=== PATIENT | female | born 1945 | race Caucasian/White ===

== ENCOUNTER 2019-01-22 10:58 | Inpatient (IN) | payer MEDICARE ==
[~2019-01-22] VITALS: Ht 162.6 cm; Wt 106.8 kg
[~2019-01-22 10:58] MED LIST: METO100T7 PO; MONT10TA24 PO; OMEP20CA11 PO; SIMV-42 PO; TRAM200T4 PO
--- NOTE | 2019-01-22 11:10 | NUR ---
STROKE NURSE AT BEDSIDE.
[2019-01-22 11:22] LABS: BASOPHILS # (AUTO) 0.1 X10'3 (0-0.2); BASOPHILS % (AUTO) 0.6 % (0-1); EOSINOPHILS # (AUTO) 0.2 X10'3 (0-0.9); EOSINOPHILS % (AUTO) 1.7 % (0-6); HEMATOCRIT 41.4 % (35.0-45.0); HEMOGLOBIN 14.1 g/dl (12.0-16.0); LYMPHOCYTES # (AUTO) 2.4 X10'3 (1.1-4.8); LYMPHOCYTES % (AUTO) 25.2 % (21-51); MEAN CORPUSCULAR HEMOGLOBIN 29.9 PG (27.0-31.0); MEAN CORPUSCULAR VOLUME 87.8 FL (78-98); MEAN PLATELET VOLUME 7.6 FL (7.4-10.4); MONOCYTES # (AUTO) 0.7 X10'3 (0-0.9); NEUTROPHILS # (AUTO) 6.3 X10'3 (1.8-7.7); NEUTROPHILS % (AUTO) 65.5 % (42-75); PLATELET COUNT 260 X10'3 (140-440); RED BLOOD COUNT 4.71 X10'6 (4.20-5.60); RED CELL DISTRIBUTION WIDTH 14.2 % (11.5-14.5); WHITE BLOOD COUNT 9.6 X10'3 (4.5-11.0)
[2019-01-22 11:36] LABS: PARTIAL THROMBOPLASTIN TIME 26 SECONDS (22-32)
[2019-01-22 11:37] LABS: ALANINE AMINOTRANSFERASE 21 U/L (12-78); ALBUMIN 3.6 G/DL (3.4-5.0); ALBUMIN/GLOBULIN RATIO 0.9 (1.1-1.5); ALKALINE PHOSPHATASE 94 IU/L (46-116); ANION GAP 11 (8-16); ASPARTATE AMINO TRANSFERASE 23 U/L (10-37); BILIRUBIN,TOTAL 0.3 MG/DL (0.1-1.0); BLOOD UREA NITROGEN 18 MG/DL (7-18); BUN/CREATININE RATIO 23.1 (6.6-38.0); CHLORIDE 104 MMOL/L (99-107); CREATININE 0.78 MG/DL (0.40-0.90); GLUCOSE 122 MG/DL (70-104); POTASSIUM 3.9 MMOL/L (3.5-5.1); SODIUM 139 MMOL/L (135-145); TOTAL CARBON DIOXIDE 24.3 MMOL/L (24-32); TOTAL PROTEIN 7.5 G/DL (6.4-8.2); eGFR 73 ML/MIN
[2019-01-22 11:42] LABS: TROPONIN I < 0.04 NG/ML (0.0-0.05)
[2019-01-22] MEDS ORDERED: aspirin 325mg tablet PO ONE (11:50)
[2019-01-22] MEDS ORDERED: METO-467 PO (11:52)
--- NOTE | 2019-01-22 11:58 | NUR ---
Evaluted for level 1 stroke at 1110 this morning. Patient describes weakness and dragging of left leg and weakness in the left arm at approximately 1040 this am. Upon arrival in ED symptoms have largely resolved. No weakness notable on exam, although patient describes feeling "mildly weak still." CT done, labs reviewed, glucose normal. Teleneurolgy and ER provider assessment, ruled out for TPA. Will be admitted for TIA/stroke work-up.
[2019-01-22] MEDS ORDERED: morphine 2 MG/ML inj. syringe IV PRN ×2 (12:00)
[2019-01-22] MEDS ORDERED: magnesium Cl slow-release 64mg tablet PO PRN (12:00)
[2019-01-22] MEDS ORDERED: bisacodyl 10mg suppository rectal RC PRN (12:00)
[2019-01-22] MEDS ORDERED: diphenhydrAMINE 25mg capsule PO PRN (12:00)
[2019-01-22] MEDS ORDERED: magnesium 2GM in 50ml NS 50 ML IV PRN (12:00)
[2019-01-22] MEDS ORDERED: HYDROcodone/acetaminophen 10/325mg tab PO PRN (12:00)
[2019-01-22] MEDS ORDERED: HYDROcodone/acetaminophen 5mg/325mg tablet PO PRN (12:00)
[2019-01-22] MEDS ORDERED: acetaminophen 325mg tablet PO PRN ×2 (12:00)
[2019-01-22] MEDS: K and/or MAG REPLACEMENT MC SCH (12:00)
[2019-01-22] MEDS ORDERED: potassium Cl 20 mEq SR tablet PO PRN ×2 (12:00)
[2019-01-22] MEDS ORDERED: magnesium 4gm in 100ml NS 100 ML IV PRN (12:00)
[2019-01-22] MEDS ORDERED: magnesium hydroxide 30ml (MOM) UD suspension PO PRN (12:00)
[2019-01-22] MEDS ORDERED: potassium CL 10mEq/100ml bag 100 ML IV PRN ×2 (12:00)
[2019-01-22] MEDS ORDERED: ondansetron/PF 4mg/2ml inj IV PRN (12:00)
[2019-01-22] MEDS ORDERED: mag hydrox/Alum hydrox/simeth 30ml oral suspension PO PRN (12:00)
[2019-01-22] MEDS: normal saline 1000ml 1,000 ML IV SCH ×3 (12:37→23:55)
[2019-01-22 12:43] LABS: CHOL/HDL RATIO 4.9 (0.00-4.99); CHOLESTEROL 197 MG/DL (0-200); HDL CHOLESTEROL 40 MG/DL (35-60); LDL CHOLESTEROL 124 MG/DL (50-100); TRIGLYCERIDES 324 MG/DL (20-135)
[2019-01-22 14:10] VITALS: BP 165/89
--- NOTE | 2019-01-22 14:43 | NUR ---
PT PASSED BED SIDE SWALLOW STUDY AND IS ABLE TO HAVE THIN LIQUIDS AND A HEART HEALTHY DIET.
[2019-01-22 14:48] LABS: CLARITY,URINE CLEAR (Clear); COLOR,URINE STRAW (Yellow); GLUCOSE, URINE NEGATIVE (Neg); KETONES,URINE NEGATIVE (Neg); LEUKOCYTE ESTERASE ,URINE NEGATIVE (Neg); NITRITES, URINE NEGATIVE (Neg); OCCULT BLOOD,URINE NEGATIVE (Neg); PROTEIN,URINE NEGATIVE (Neg); UROBILINOGEN,URINE 0.2 E.U/dL (0.2-1.0)
[2019-01-22 14:50] LABS: UA COLLECTION TYPE CLN CATCH MIDSTREAM
[2019-01-22] MEDS: atorvastatin 20mg tablet PO SCH (17:15)
--- NOTE | 2019-01-22 17:41 | NUR ---
PAGER ID: [phone] MESSAGE: DR. BUSTILLO, [id number], HAVE LIPITOR 80 DUE NOW. SHE SAYS SHE TOOK ZOCOR 20MG THIS MORNING. DO YOU WANT ME TO GIVE THE LIPITOR? VICENTE [phone]
[2019-01-22] MEDS ORDERED: atorvastatin 20mg tablet PO ONE (17:45)
[2019-01-22 18:00] VITALS: BP 128/64
--- NOTE | 2019-01-22 18:58 | NUR ---
Problems reprioritized. Patient report given, questions answered & plan of care reviewed with KALYANI ANDERSON.
--- NOTE | 2019-01-22 18:59 | NUR ---
Patient in room ORTHO 4022. I have received report from KALYANI Berger and had the opportunity to ask questions and assume patient care.
[2019-01-22] MEDS: heparin, porcine 5000 units/ml vial SQ SCH (20:10)
[2019-01-22] MEDS: metoprolol tartrate 50mg tablet PO SCH (20:13)
[2019-01-22 22:00] VITALS: BP 122/49
[2019-01-22 22:56] VITALS: BP_SYST 122; BP_SYST 140; BP_SYST 162; BP_DIAS 49; BP_DIAS 85
[2019-01-23 02:24] VITALS: BP 127/67
[2019-01-23 06:00] VITALS: BP 150/88
--- NOTE | 2019-01-23 06:04 | NUR ---
Problems reprioritized. Patient report given, questions answered & plan of care reviewed with KALYANI Yang.
[2019-01-23 06:17] LABS: BASOPHILS % (AUTO) 0.4 % (0-1); EOSINOPHILS # (AUTO) 0.1 X10'3 (0-0.9); EOSINOPHILS % (AUTO) 1.5 % (0-6); HEMOGLOBIN 13.4 g/dl (12.0-16.0); LYMPHOCYTES # (AUTO) 2.8 X10'3 (1.1-4.8); MEAN CORPUSCULAR HEMOGLOBIN 29.6 PG (27.0-31.0); MEAN CORPUSCULAR HGB CONC 33.5 g/dL (33.0-36.5); MEAN CORPUSCULAR VOLUME 88.3 FL (78-98); MEAN PLATELET VOLUME 7.8 FL (7.4-10.4); MONOCYTES # (AUTO) 0.6 X10'3 (0-0.9); NEUTROPHILS # (AUTO) 5.4 X10'3 (1.8-7.7); NEUTROPHILS % (AUTO) 60.1 % (42-75); PLATELET COUNT 237 X10'3 (140-440); RED BLOOD COUNT 4.53 X10'6 (4.20-5.60)
--- NOTE | 2019-01-23 06:20 | NUR ---
RECEIVED REPORT FROM KALYANI HONEYCUTT
[2019-01-23 06:34] LABS: ALANINE AMINOTRANSFERASE 17 U/L (12-78); ALBUMIN 3.2 G/DL (3.4-5.0); ALBUMIN/GLOBULIN RATIO 0.9 (1.1-1.5); ALKALINE PHOSPHATASE 80 IU/L (46-116); ANION GAP 9 (8-16); ASPARTATE AMINO TRANSFERASE 25 U/L (10-37); BILIRUBIN,TOTAL 0.4 MG/DL (0.1-1.0); BLOOD UREA NITROGEN 14 MG/DL (7-18); BUN/CREATININE RATIO 17.5 (6.6-38.0); CALCIUM 8.3 MG/DL (8.5-10.1); CHLORIDE 107 MMOL/L (99-107); CHOL/HDL RATIO 5.1 (0.00-4.99); CHOLESTEROL 183 MG/DL (0-200); GLUCOSE 135 MG/DL (70-104); HDL CHOLESTEROL 36 MG/DL (35-60); LDL CHOLESTEROL 117 MG/DL (50-100); MAGNESIUM 1.7 MG/DL (1.5-2.4); PHOSPHORUS 3.7 MG/DL (2.3-4.5); POTASSIUM 3.9 MMOL/L (3.5-5.1); SODIUM 142 MMOL/L (135-145); TOTAL CARBON DIOXIDE 25.7 MMOL/L (24-32); TOTAL PROTEIN 6.7 G/DL (6.4-8.2); TRIGLYCERIDES 300 MG/DL (20-135); eGFR 71 ML/MIN
[2019-01-23] MEDS: K and/or MAG REPLACEMENT MC SCH (07:17)
[2019-01-23] MEDS: metoprolol tartrate 50mg tablet PO SCH (07:41)
[2019-01-23] MEDS: heparin, porcine 5000 units/ml vial SQ SCH (07:43)
[2019-01-23] MEDS ORDERED: pantoprazole 40mg Tablet.DR PO SCH ×2 (08:00)
[2019-01-23] MEDS ORDERED: aspirin 81mg tablet.DR PO SCH (08:00)
[2019-01-23] MEDS ORDERED: omega-3 acid ethyl esters 1GM capsule PO SCH (08:00)
--- NOTE | 2019-01-23 08:58 | NUR ---
Pt reports using a CPAP for delivery of room air, only when sleeping. Addendum: 01/23/19 at 0903 by Shivani COX Amended: Links added.
--- NOTE | 2019-01-23 08:59 | NUR ---
Pt reports LBM was yesterday. BM was normal for her. Addendum: 01/23/19 at 0903 by Shivani COX Amended: Links added.
[2019-01-23] MEDS: atorvastatin 20mg tablet PO SCH (09:26)
[2019-01-23 11:00] VITALS: BP_SYST 140; BP_SYST 144; BP_DIAS 71; BP_DIAS 75; BP_DIAS 82
--- NOTE | 2019-01-23 11:55 | NUR ---
Student documentation: I have reviewed all interventions, assessments performed and documented by Shivani Snowa Joaquina. Student Medication Administration: For this medication-pass time frame, all medication were reviewed, dispensed, administered and documented per hospital policy by Shivani Robertssta Joaquina.
--- NOTE | 2019-01-23 11:58 | NUR ---
Patient in room ORTHO 4022. I have received report from Celia and had the opportunity to ask questions and assume patient care.
--- NOTE | 2019-01-23 11:59 | NUR ---
Problems reprioritized. Patient report given, questions answered & plan of care reviewed with
[2019-01-23 14:00] VITALS: BP 153/75
[2019-01-23] MEDS ORDERED: ASPI-1071 PO (14:53)
[2019-01-23] MEDS ORDERED: ATOR20TA66 PO (14:53)
[2019-01-23] MEDS ORDERED: OMEG1CAP PO (14:53)
--- NOTE | 2019-01-23 15:28 | NUR ---
pt d/c with instructions, understanding of instructions and w/all belongings to private vehicle to go home and f/u w/pcp
== END 2019-01-23 15:20 | disposition home or self-care (01) | DRG 69 ==
LOC: ER 10:59 → ED HOLD 12:00 → ORTHO 4S 14:15
PROVIDERS: ADMIT Family Medicine; ATTEND Family Medicine
DX: G45.9 Transient cerebral ischemic attack, unspecified (principal); Z68.41 Body mass index [BMI] 40.0-44.9, adult; E78.00 Pure hypercholesterolemia, unspecified; E66.01 Morbid (severe) obesity due to excess calories; E78.1 Pure hyperglyceridemia; E78.5 Hyperlipidemia, unspecified; Z96.642 Presence of left artificial hip joint; G47.33 Obstructive sleep apnea (adult) (pediatric); I10 Essential (primary) hypertension; I25.10 Atherosclerotic heart disease of native coronary artery without angina pectoris; Z79.899 Other long term (current) drug therapy; Z82.3 Family history of stroke; Z82.49 Family history of ischemic heart disease and other diseases of the circulatory system; Z98.42 Cataract extraction status, left eye; Z98.41 Cataract extraction status, right eye; Z88.5 Allergy status to narcotic agent
CPT/HCPCS: 36415; 70450; 70544; 70551; 71045; 80053; 80061; 81003; 82948; 83036; 83735; 84100; 84484; 85025; 85610; 85651; 85730; 87081; 92508; 92616; 93005; 93306; 93880; 97161; 97530; 99291; G0378; J1644; J7030

== ENCOUNTER 2019-10-18 07:52 | Inpatient (IN) | payer MEDICARE ==
[~2019-10-18] VITALS: Ht 162.6 cm; Wt 104.5 kg
[~2019-10-18 07:52] MED LIST changes: +ASPI-1071 PO; +ATOR20TA66 PO; +METO-467 PO; -METO100T7 PO; -MONT10TA24 PO; +OMEG1CAP PO; -OMEP20CA11 PO; +OMEP20CA15 PO; -SIMV-42 PO; -TRAM200T4 PO
[2019-10-18 08:09] LABS: BASOPHILS # (AUTO) 0.1 X10'3 (0-0.2); BASOPHILS % (AUTO) 0.7 % (0-1); EOSINOPHILS # (AUTO) 0.2 X10'3 (0-0.9); EOSINOPHILS % (AUTO) 2.2 % (0-6); HEMATOCRIT 42.5 % (35.0-45.0); HEMOGLOBIN 14.7 g/dl (12.0-16.0); MEAN CORPUSCULAR HEMOGLOBIN 29.8 PG (27.0-31.0); MEAN CORPUSCULAR HGB CONC 34.5 g/dL (33.0-36.5); MEAN CORPUSCULAR VOLUME 86.5 FL (78-98); MEAN PLATELET VOLUME 7.8 FL (7.4-10.4); MONOCYTES # (AUTO) 0.9 X10'3 (0-0.9); NEUTROPHILS # (AUTO) 6.8 X10'3 (1.8-7.7); NEUTROPHILS % (AUTO) 62.1 % (42-75); PLATELET COUNT 259 X10'3 (140-440); RED BLOOD COUNT 4.92 X10'6 (4.20-5.60); RED CELL DISTRIBUTION WIDTH 14.8 % (11.5-14.5)
[2019-10-18 08:24] LABS: PARTIAL THROMBOPLASTIN TIME 25 SECONDS (22-32)
[2019-10-18 08:42] LABS: POTASSIUM 4.2 MMOL/L (3.5-5.1)
[2019-10-18 08:43] LABS: ALANINE AMINOTRANSFERASE 27 U/L (12-78); ALBUMIN 3.3 G/DL (3.4-5.0); ALBUMIN/GLOBULIN RATIO 0.8 (1.1-1.5); ANION GAP 8 (8-16); ASPARTATE AMINO TRANSFERASE 26 U/L (10-37); BILIRUBIN,TOTAL 0.2 MG/DL (0.1-1.0); BLOOD UREA NITROGEN 14 MG/DL (7-18); BUN/CREATININE RATIO 16.7 (6.6-38.0); CALCIUM 8.4 MG/DL (8.5-10.1); CHLORIDE 108 MMOL/L (99-107); CREATININE 0.84 MG/DL (0.40-0.90); GLUCOSE 146 MG/DL (70-104); SODIUM 141 MMOL/L (135-145); TOTAL PROTEIN 7.2 G/DL (6.4-8.2); eGFR 67 ML/MIN
[2019-10-18 08:45] LABS: ALKALINE PHOSPHATASE 85 IU/L (46-116)
[2019-10-18 09:02] LABS: MAGNESIUM 1.8 MG/DL (1.5-2.4)
[2019-10-18] MEDS ORDERED: aspirin 325mg tablet PO ONE (09:10)
[2019-10-18] MEDS ORDERED: ASPI-1265 PO (09:50)
[2019-10-18] MEDS ORDERED: FLUO20DR4 EACH EAR (09:51)
[2019-10-18] MEDS ORDERED: ATOR40TA72 PO (09:52)
[2019-10-18] MEDS ORDERED: acetaminophen 325mg tablet PO PRN (10:45)
[2019-10-18] MEDS ORDERED: magnesium hydroxide 30ml (MOM) UD suspension PO PRN (10:45)
[2019-10-18] MEDS ORDERED: ondansetron/PF 4mg/2ml inj IV PRN (10:45)
[2019-10-18] MEDS ORDERED: mag hydrox/Alum hydrox/simeth 30ml oral suspension PO PRN (10:45)
[2019-10-18] MEDS: normal saline 1000ml 1,000 ML IV SCH ×3 (11:07→23:16)
[2019-10-18 11:31] LABS: CHOL/HDL RATIO 5.8 (0.00-4.99); CHOLESTEROL 187 MG/DL (0-200); HDL CHOLESTEROL 32 MG/DL (35-60); LDL CHOLESTEROL 106 MG/DL (50-100); TRIGLYCERIDES 442 MG/DL (20-135)
--- NOTE | 2019-10-18 11:45 | NUR ---
assisted pulmonary function technologist with bubble study.
--- NOTE | 2019-10-18 11:49 | NUR ---
speech therp at bedside for swallow study ,pt going to [facility].
--- NOTE | 2019-10-18 11:51 | NUR ---
[facility] IS HERE TO TRANSFER PT. TO [facility] FOR MRI, REQUESTED BY DR. HODGES.
--- NOTE | 2019-10-18 11:53 | NUR ---
TJ NURSE IS GOING WITH THE PT.
--- NOTE | 2019-10-18 12:01 | NUR ---
TJ NURSE WILL GO WITH PT. TO ROOM ASSIGNMENT WHEN PT. RETURNS. PT. BELONGINGS ARE GOING TO BE DELIVERED TO THE ROOM ASSIGNED
--- NOTE | 2019-10-18 12:07 | NUR ---
Patient in room ED 10. I have received report from Davin AUGUSTE and had the opportunity to ask questions and assume patient care.
[2019-10-18 14:04] VITALS: BP 169/75
[2019-10-18 15:57] LABS: CLARITY,URINE CLEAR (Clear); COLOR,URINE STRAW (Yellow); GLUCOSE, URINE NEGATIVE (Neg); KETONES,URINE NEGATIVE (Neg); LEUKOCYTE ESTERASE ,URINE NEGATIVE (Neg); NITRITES, URINE NEGATIVE (Neg); OCCULT BLOOD,URINE NEGATIVE (Neg); PH,URINE 6.5 (4.8-8.0); PROTEIN,URINE NEGATIVE (Neg); UROBILINOGEN,URINE 0.2 E.U/dL (0.2-1.0)
[2019-10-18 16:02] LABS: UA COLLECTION TYPE CLN CATCH MIDSTREAM
--- NOTE | 2019-10-18 16:02 | NUR ---
Patient report given to Chelsey AUGUSTE
[2019-10-18 18:00] VITALS: BP 159/78
--- NOTE | 2019-10-18 18:43 | NUR ---
Patient in room ORTHO 4012. I have received report from Chelsey AUGUSTE and had the opportunity to ask questions and assume patient care.
[2019-10-18] MEDS ORDERED: metoprolol tartrate 50mg tablet PO SCH (20:00)
[2019-10-18] MEDS: heparin, porcine 5000 units/ml vial SQ SCH (20:02)
[2019-10-18 22:00] VITALS: BP 145/78
[2019-10-19 02:21] VITALS: BP 130/67
[2019-10-19 05:59] LABS: ANION GAP 9 (8-16); BLOOD UREA NITROGEN 13 MG/DL (7-18); BUN/CREATININE RATIO 17.1 (6.6-38.0); CALCIUM 8.3 MG/DL (8.5-10.1); CHLORIDE 108 MMOL/L (99-107); CREATININE 0.76 MG/DL (0.40-0.90); GLUCOSE 123 MG/DL (70-104); POTASSIUM 3.9 MMOL/L (3.5-5.1); SODIUM 141 MMOL/L (135-145); TOTAL CARBON DIOXIDE 24.5 MMOL/L (24-32); eGFR 75 ML/MIN
[2019-10-19 06:18] LABS: BASOPHILS % (AUTO) 0.4 % (0-1); EOSINOPHILS # (AUTO) 0.2 X10'3 (0-0.9); EOSINOPHILS % (AUTO) 2.1 % (0-6); HEMATOCRIT 38.2 % (35.0-45.0); HEMOGLOBIN 12.8 g/dl (12.0-16.0); LYMPHOCYTES # (AUTO) 3.6 X10'3 (1.1-4.8); LYMPHOCYTES % (AUTO) 36.2 % (21-51); MEAN CORPUSCULAR HGB CONC 33.4 g/dL (33.0-36.5); MEAN CORPUSCULAR VOLUME 86.8 FL (78-98); MEAN PLATELET VOLUME 8.2 FL (7.4-10.4); MONOCYTES # (AUTO) 0.7 X10'3 (0-0.9); MONOCYTES % (AUTO) 7.3 % (2-12); NEUTROPHILS # (AUTO) 5.4 X10'3 (1.8-7.7); PLATELET COUNT 213 X10'3 (140-440); RED BLOOD COUNT 4.41 X10'6 (4.20-5.60); RED CELL DISTRIBUTION WIDTH 14.8 % (11.5-14.5); WHITE BLOOD COUNT 9.9 X10'3 (4.5-11.0)
--- NOTE | 2019-10-19 06:22 | NUR ---
Problems reprioritized. Patient report given, questions answered & plan of care reviewed with Chelsey AUGUSTE.
[2019-10-19 07:25] VITALS: BP 141/79
[2019-10-19] MEDS ORDERED: pantoprazole 40mg Tablet.DR PO SCH (07:30)
[2019-10-19] MEDS ORDERED: atorvastatin 20mg tablet PO SCH (08:00)
[2019-10-19] MEDS ORDERED: aspirin 81mg tablet.DR PO SCH (08:00)
[2019-10-19] MEDS: heparin, porcine 5000 units/ml vial SQ SCH (10:12)
[2019-10-19 12:00] VITALS: BP 156/78
[2019-10-19] MEDS ORDERED: CLOP75TA15 PO (12:25)
[2019-10-19] MEDS ORDERED: ASPI81TA52 PO (12:25)
--- NOTE | 2019-10-21 16:07 | NUR ---
Case management DC follow up: LM/VM re post DC status, questions, concerns
[2019-10-23] MEDS ORDERED: FLUOCINOLONE ACETONIDE OIL EACH EAR SCH (08:00)
== END 2019-10-19 12:41 | disposition home or self-care (01) | DRG 66 ==
LOC: ER 07:53 → ED HOLD 10:41 → EDBEDREQ 11:35 → ORTHO 4S 13:00
PROVIDERS: ADMIT Family Medicine; ATTEND Family Medicine
PROC: 5A09357 Assistance with Respiratory Ventilation, Less than 24 Consecutive Hours, Continuous Positive Airway Pressure (ICD-10-PCS; principal; 2019-10-18)
DX: I63.9 Cerebral infarction, unspecified (principal); E78.00 Pure hypercholesterolemia, unspecified; E78.5 Hyperlipidemia, unspecified; G47.30 Sleep apnea, unspecified; I10 Essential (primary) hypertension; H53.8 Other visual disturbances; I25.10 Atherosclerotic heart disease of native coronary artery without angina pectoris; Z86.73 Personal history of transient ischemic attack (TIA), and cerebral infarction without residual deficits; Z79.899 Other long term (current) drug therapy; Z79.82 Long term (current) use of aspirin
CPT/HCPCS: 36415; 70450; 70551; 71045; 80048; 80053; 80061; 81003; 82948; 83735; 83880; 84484; 85025; 85610; 85730; 87081; 92508; 92616; 93005; 93306; 93880; 97110; 97161; 97530; 99285; G0378; J1644; J7030

== ENCOUNTER 2020-03-27 07:03 | Outpatient (CLI) | payer MEDICARE ==
[~2020-03-27 07:03] MED LIST changes: -ASPI-1071 PO; -ATOR20TA66 PO; +ATOR40TA72 PO; +CLOP75TA15 PO; +FLUO20DR4 EACH EAR; -OMEG1CAP PO
== END 2020-03-27 23:59 | disposition home or self-care (01) ==
LOC: RAD 07:03
PROVIDERS: ATTEND Family Medicine
DX: R10.9 Unspecified abdominal pain (principal); R14.0 Abdominal distension (gaseous)
CPT/HCPCS: 76700

== ENCOUNTER 2021-05-15 13:53 | Emergency (ER) | payer MEDICARE ==
[~2021-05-15] VITALS: Ht 162.6 cm; Wt 104.5 kg
[~2021-05-15 13:53] MED LIST changes: +ASPI-1265 PO; +MULT-1085 PO; +TEMA30CA PO; +UBID30CA11 PO
[2021-05-15 14:34] LABS: BASOPHILS % (AUTO) 0.4 % (0-1); EOSINOPHILS # (AUTO) 0.2 X10'3 (0-0.9); EOSINOPHILS % (AUTO) 1.7 % (0-6); HEMATOCRIT 41.1 % (35.0-45.0); HEMOGLOBIN 13.8 g/dl (12.0-16.0); LYMPHOCYTES # (AUTO) 2.3 X10'3 (1.1-4.8); LYMPHOCYTES % (AUTO) 23.9 % (21-51); MEAN CORPUSCULAR HEMOGLOBIN 28.9 PG (27.0-31.0); MEAN CORPUSCULAR HGB CONC 33.4 g/dL (33.0-36.5); MEAN CORPUSCULAR VOLUME 86.4 FL (78-98); MEAN PLATELET VOLUME 7.5 FL (7.4-10.4); MONOCYTES # (AUTO) 0.6 X10'3 (0-0.9); MONOCYTES % (AUTO) 6.7 % (2-12); NEUTROPHILS # (AUTO) 6.4 X10'3 (1.8-7.7); NEUTROPHILS % (AUTO) 67.3 % (42-75); PLATELET COUNT 247 X10'3 (140-440); RED BLOOD COUNT 4.76 X10'6 (4.20-5.60); RED CELL DISTRIBUTION WIDTH 14.2 % (11.5-14.5); WHITE BLOOD COUNT 9.4 X10'3 (4.5-11.0)
[2021-05-15 14:48] LABS: ALANINE AMINOTRANSFERASE 27 U/L (12-78); ALBUMIN 3.6 G/DL (3.4-5.0); ALBUMIN/GLOBULIN RATIO 0.9 (1.1-1.5); ALKALINE PHOSPHATASE 79 IU/L (46-116); ANION GAP 9 (8-16); ASPARTATE AMINO TRANSFERASE 28 U/L (10-37); BILIRUBIN,TOTAL 0.4 MG/DL (0.1-1.0); BLOOD UREA NITROGEN 17 MG/DL (7-18); BUN/CREATININE RATIO 19.8 (6.6-38.0); CALCIUM 8.5 MG/DL (8.5-10.1); CHLORIDE 105 MMOL/L (99-107); CREATININE 0.86 MG/DL (0.40-0.90); GLUCOSE 119 MG/DL (70-104); POTASSIUM 3.8 MMOL/L (3.5-5.1); SODIUM 142 MMOL/L (135-145); TOTAL CARBON DIOXIDE 27.9 MMOL/L (24-32); TOTAL PROTEIN 7.4 G/DL (6.4-8.2); eGFR 65 ML/MIN
[2021-05-15 16:06] VITALS: BP 140/75
== END 2021-05-15 17:01 | disposition home or self-care (01) ==
LOC: ER 13:53
DX: R07.89 Other chest pain (principal); E78.00 Pure hypercholesterolemia, unspecified; I10 Essential (primary) hypertension; K21.9 Gastro-esophageal reflux disease without esophagitis; Z87.01 Personal history of pneumonia (recurrent); Z86.73 Personal history of transient ischemic attack (TIA), and cerebral infarction without residual deficits; Z79.82 Long term (current) use of aspirin; Z79.899 Other long term (current) drug therapy
CPT/HCPCS: 36415; 71045; 80053; 83880; 84484; 85025; 93005; 99285